=== PATIENT | male | born 2000 | race African-American/Black ===

== ENCOUNTER 2019-02-15 17:35 | Emergency (ER) | payer OTHER ==
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
[2019-02-15] MEDS ORDERED: Benzoin Compound STICK ONE (18:42)
[2019-02-15 19:02] VITALS: BP 124/77
== END 2019-02-15 19:00 | disposition home or self-care (01) ==
LOC: ED 17:35
DX: S00.93XA Contusion of unspecified part of head, initial encounter (principal); V18.4XXA Pedal cycle driver injured in noncollision transport accident in traffic accident, initial encounter; Y93.55 Activity, bike riding; Y92.89 Other specified places as the place of occurrence of the external cause
CPT/HCPCS: 99282

== ENCOUNTER 2019-02-22 11:38 | Emergency (ER) | payer OTHER ==
[2019-02-22 13:19] VITALS: BP 117/40
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
== END 2019-02-22 13:30 | disposition home or self-care (01) ==
LOC: UCEAST 11:38
DX: S01.81XD Laceration without foreign body of other part of head, subsequent encounter (principal); V19.9XXD Pedal cyclist (driver) (passenger) injured in unspecified traffic accident, subsequent encounter